=== PATIENT | male | born 1990 | race Caucasian/White ===

== ENCOUNTER 2018-11-17 20:54 | Emergency (ER) | payer SELFPAY ==
[~2018-11-17] VITALS: Ht 175.3 cm; Wt 97.4 kg
[2018-11-17 20:55] VITALS: Ht 175.3 cm; Wt 97.4 kg
[2018-11-17] MEDS ORDERED: LIDOCAINE 1% (MDV) 10 ML INJ INJ STA (23:19)
[2018-11-17] MEDS ORDERED: DIPHTH/TET/ACEL PERTUSS (ADULT) 0.5 ML VIAL IM* ONE (23:30)
[2018-11-17] MEDS ORDERED: LIDOCAINE 1% (MDV) 20 ML INJ INJ ONE (23:30)
--- NOTE | 2018-11-17 23:43 | ERD ---
ER Documentation Chief Complaint Chief Complaint Pt hit in head with hockey stick, laceration to L forehead HPI This is a 28-year-old male with a nonsignificant past medical history presents ED with laceration to left forehead. Patient states that he was playing hockey a hockey-stick actually struck him in the forehead. Patient admits to a very mild headache. Denies any loss of consciousness with this event. Denies dizziness, lightheadedness, blurry vision, changes in vision, confusion, nausea or vomiting postevent. Patient is unsure when last tetanus was. ROS All systems reviewed and are negative except as per history of present illness. Allergies Allergies: Coded Allergies: No Known Allergy (Unverified , 11/17/18) PMhx/Soc Medical and Surgical Hx: pt denies Medical Hx, pt denies Surgical Hx Hx Alcohol Use: No Hx Substance Use: No Hx Tobacco Use: No Smoking Status: Never smoker FmHx Family History: No diabetes Physical Exam Vitals Vital Signs Date Temp Pulse Resp B/P (MAP) Pulse Ox O2 O2 Flow FiO2 Time Delivery Rate 11/17/18 98.2 82 16 132/70 100 20:55 (90) Physical Exam Physical Exam Vitals signs: Reviewed by me. General: Well developed, well nourished, in no acute distress. Patient is awake and alert. Head: There is a 4 cm laceration on patient's left forehead Eyes: Normal conjunctiva, Pupils PERRLA, EOM intact grossly, no periorbital ecchymosis, no mastoid ecchymosis or mastoid tenderness ENT: Pharynx is clear, Moist mucous membranes, external ears, nose and mouth normal Neck: Supple, no masses, lymphadenopathy or JVD Respiratory: Clear to auscultation bilaterally with no wheezing, rhonchi, rales, no distress Cardiovascular: RRR, no murmurs, rubs, or gallops MSK: No edema, no unilateral swelling, 5/5 strength Back: No midline tenderness. No flank tenderness Neurologic: Alert and oriented, moving all extremities, normal speech, no focal weakness, no cerebellar signs. Normal mentation Skin: warm and dry, No rash Psych: Normal mood Results 24 hrs Current Medications Medications Dose Sig/Pricila Start Time Status Last (Trade) Ordered Route PRN Stop Time Admin Dose Reason Admin Diphtheria/ 0.5 ml ONCE ONCE 11/17/18 DC 11/17/18 Tetanus/Acell IM* 23:30 23:34 Pertussis 11/17/18 23:31 (Adacel) Lidocaine 10 ml ONCE STAT 11/17/18 Cancel HCl INJ 23:19 (Lidocaine 11/17/18 23:20 1% (Mdv) 10 ml) Lidocaine 10 ml ONCE ONCE 11/17/18 DC 11/17/18 (Xylocaine INJ 23:30 23:35 1% (Mdv) 20 11/17/18 23:31 ml) Procedures/MDM PROCEDURES: Laceration Repair by me: Anesthesia: 1% lidocaine locally Location: Left forehead Tendon/Joint/Nerves: No injury Foreign body: None detected after copious irrigation and exploration Technique: 8 Simple Interrupted Sutures Complexity: No subcutaneous sutures/mucosal repair/edge excision Post Closure Length: 4 cm Patient's bleeding was easily controlled in the department and there is no indication of anemia. No evidence of compartment syndrome, neurologic injury, vascular injury, open joint, tendon laceration, or foreign body. Patient is appropriate for outpatient follow up. 48 hour wound check. Scar minimization instructions given. ER COURSE: The patient was stable throughout ED course. I kept the patient and/or family informed of laboratory and diagnostic imaging results throughout the emergency room course. The patient was promptly evaluated and a treatment plan was devised based on H&P and other data. This plan was discussed with the patient who agreed and had no further questions or concerns prior to discharge. MEDICAL DECISION MAKING: Laceration was repaired in ED and instructions for post care were discussed. Due to where laceration is we discussed possibility of a scar. For best cosmesis I used 4-0 Ethilon sutures. no evidence of compartment syndrome, neurologic injury, vascular injury, open joint, tendon laceration, fracture, dislocation, or foreign body. Patient's vitals are stable and pt can be managed with close out patient follow up. Advised patient to return to ED or to be seen by primary care for a 48 hour wound check. Pt will also need to return to ED or be seen by primary care provider to have sutures removed in 7 days. Return to ED with any worsening symptoms and if patient starts experiencing fever, chills, purulent drainage, warmth, swelling at laceration site this may be indications that wound has become infected and patient may need antibiotics. DISPOSITION PLAN: We discussed follow up with the patient's primary care doctor within 24 to 48 hours. Patient counseled regarding my diagnostic impression and care plan. Prior to discharge all questions answered. Pt agrees with treatment plan and und erstands strict return precautions. Precautionary instructions provided including instructions to return to the ER if not improving or for any worsening or changing symptoms or concerns. SPECIALIST FOLLOW UP RECOMMENDED: None Patient has been advised to follow up with primary care in 1-2 days. Disclaimer: Inadvertent spelling and grammatical errors are likely due to EHR/dictation software use and do not reflect on the overall quality of patient care. Also, please note that the electronic time recorded on this note does not necessarily reflect the actual time of the patient encounter. Departure Diagnosis: Primary Impression: Forehead laceration Condition: Stable Patient Instructions: Laceration, Face (Suture Or Tape) Referrals: [facility] YOU HAVE RECEIVED A MEDICAL SCREENING EXAM AND THE RESULTS INDICATE THAT YOU DO NOT HAVE A CONDITION THAT REQUIRES URGENT TREATMENT IN THE EMERGENCY DEPARTMENT. FURTHER EVALUATION AND TREATMENT OF YOUR CONDITION CAN WAIT UNTIL YOU ARE SEEN IN YOUR DOCTORS OFFICE WITHIN THE NEXT 1-2 DAYS. IT IS YOUR RESPONSIBILITY TO MAKE AN APPOINTMENT FOR FOLOW-UP CARE. IF YOU HAVE A PRIMARY DOCTOR --you should call your primary doctor and schedule an appointment IF YOU DO NOT HAVE A PRIMARY DOCTOR YOU CAN CALL OUR PHYSICIAN REFERRAL HOTLINE AT IF YOU CAN NOT AFFORD TO SEE A PHYSICIAN YOU CAN CHOSE FROM THE FOLLOWING [facility] [address] [facility]. [facility] [address] [facility]. [facility] [address] [facility]. [facility] [address] [facility]. [facility] [address] [facility]. [facility]. [address] Additional Instructions: you will need to return to the emergency department or see be seen by your primary care physician for a wound check in 2 days You will also need to have sutures removed in roughly 1 week Patient advised to return to the ED immediately for new or worsening symptoms. Patient advised to follow up with primary care provider in the next 24-48 hours. Patient verbalized understanding and agrees with treatment plan and course of action. If patient has no primary care they may follow up with one of the community clinics listed on the following page or one of the options listed below [facility] + [address] [address] or [facility] [address] [place] [address] or [facility] [address] [place] [address] KIRSTEN PATRICIA PA-C Nov 17, 2018 23:43
[2018-11-18 01:49] VITALS: BP 122/65; PULSE 78; RESP 18
== END 2018-11-18 01:50 | disposition home or self-care (01) ==
LOC: FTE 20:54
DX: S01.81XA Laceration without foreign body of other part of head, initial encounter (principal); W21.211A Struck by field hockey stick, initial encounter; Y92.9 Unspecified place or not applicable; Z23 Encounter for immunization
CPT/HCPCS: 90471; 90715